=== PATIENT | female | born 1985 | race Caucasian/White ===

== ENCOUNTER → 2020-12-20 | Outpatient (CLI) | payer OTHER ==
[~2020-12-20] MED LIST: BACTRIM DS TAB1 EACH PO
[2020-12-20 09:34] LABS: HEMOGLOBIN 11.2 gm/dl (12.3-15.3); RED BLOOD COUNT 4.26 M/UL (4.00-5.10); WHITE BLOOD COUNT 9.7 K/UL (4.5-11.0)
[2020-12-21 12:10] LABS: RHEUMATOID ARTHRITIS FACTOR <10.0 IU/mL (0.0-13.9)
== END ==
LOC: LAB 09:03
PROVIDERS: Nurse Practitioner Family
DX: M25.50 Pain in unspecified joint (principal)
CPT/HCPCS: 36415; 82550; 84550; 85025; 85652; 86038; 86140; 86200; 86431

== ENCOUNTER 2020-12-23 06:45 | Emergency (ER) | payer OTHER | END 2020-12-23 08:33 | disposition home or self-care (01) | LOC: ER1 06:45 | DX: M25.562 Pain in left knee (principal); R42 Dizziness and giddiness; F17.210 Nicotine dependence, cigarettes, uncomplicated; E03.9 Hypothyroidism, unspecified; Z85.3 Personal history of malignant neoplasm of breast | CPT/HCPCS: 99283 ==

== ENCOUNTER → 2020-12-25 | Outpatient (CLI) | payer OTHER | LOC: RAD 09:58 | DX: M25.562 Pain in left knee (principal); M17.12 Unilateral primary osteoarthritis, left knee | CPT/HCPCS: 73562 ==

== ENCOUNTER → 2021-01-09 | Outpatient (CLI) | payer OTHER | LOC: EXRD 15:06 | DX: E04.9 Nontoxic goiter, unspecified (principal) | CPT/HCPCS: 76536 ==

== ENCOUNTER → 2021-03-28 | Outpatient (CLI) | payer OTHER | LOC: RAD 10:57 | DX: D72.829 Elevated white blood cell count, unspecified (principal) | CPT/HCPCS: 71046 ==

== ENCOUNTER → 2021-04-16 | Outpatient (CLI) | payer OTHER | LOC: EXRD 04-09 10:15 | DX: R94.5 Abnormal results of liver function studies (principal) | CPT/HCPCS: 76705 ==